=== PATIENT | male | born 1980 | race Hispanic/Latino ===

== ENCOUNTER 2016-10-22 09:48 | Emergency (ER) | payer MEDICARE ==
[2016-10-22] MEDS ORDERED: hyperRAB S/D IM ONE ×2 (10:00→15:00)
[2016-10-22] MEDS ORDERED: IMOVAX RABIES VACCINE IM ONE (10:00)
[2016-10-22] MEDS ORDERED: BOOSTRIX IM ONE (14:01)
[2016-10-22] MEDS ORDERED: PERCOCET 5/325 PO ONE (14:01)
[2016-10-22] MEDS ORDERED: RABAVERT RABIES VACCINE(PCEC) IM ONE (14:01)
[2016-10-22] MEDS ORDERED: NACL 0.9% IR ONE (14:04)
--- NOTE | 2016-10-22 14:24 | Emergency Department Report ---
ED Animal Bite HPI - General Chief Complaint: Animal Bite Stated Complaint: RT HAND LACERATION Time Seen by Provider: 10/22/16 13:24 Source: patient, family Mode of arrival: Ambulatory Limitations: No Limitations - Related Data Home Medications Medication Instructions Recorded Confirmed Last Taken Citalopram [celeXA] 50 mg PO QHS 11/03/13 03/28/16 04/13/15 QUEtiapine [Seroquel] 200 mg PO BID 11/03/13 03/28/16 04/13/15 traZODone [Desyrel] 100 mg PO QHS 11/03/13 03/28/16 04/13/15 LORazepam [Ativan] 0.5 mg PO BID 09/11/14 03/28/16 04/13/15 carBAMazepine [TEGretol] 200 mg PO Q12HR 03/26/16 03/28/16 Unknown Previous Rx's Medication Instructions Recorded Last Taken Type Diphenoxylate/Atropine [Lomotil] 1 tab PO QID PRN #20 tablet 03/26/16 1 Day Ago Rx Promethazine [Phenergan] 25 mg DC Q6HR PRN #10 supp.rect 03/26/16 1 Day Ago Rx traMADol [Ultram] 50 mg PO Q6HR PRN #14 tablet 03/26/16 Unknown Rx Famotidine [Pepcid] 20 mg PO BID #30 tablet 03/28/16 Unknown Rx Ondansetron [Zofran ODT TAB] 8 mg PO Q8HR #30 tab.rapdis 03/28/16 Unknown Rx metroNIDAZOLE [Flagyl] 500 mg PO Q12HR #20 tab 03/28/16 Unknown Rx ALBUTEROL Inhaler [ProAir HFA 2 puff IH QID PRN #1 inhalation 05/18/16 Unknown Rx Inhaler] Azithromycin [Zithromax Z-MELONY] 250 mg PO DAILY #6 tab 05/18/16 Unknown Rx Cephalexin [Keflex] 500 mg PO Q12HR #14 cap 05/26/16 Unknown Rx Ibuprofen [Motrin] 800 mg PO Q8HR PRN #20 tablet 05/26/16 Unknown Rx Mupirocin [Bactroban 2% OINT] 1 applic TP TID #1 tube 05/26/16 Unknown Rx Sulfamethoxazole/Trimethoprim 1 each PO BID #14 tablet 05/26/16 Unknown Rx [Bactrim DS TAB] Allergies Allergy/AdvReac Type Severity Reaction Status Date / Time tramadol Allergy Rash Verified 05/26/16 10:36 ED Review of Systems ROS: Stated complaint: RT HAND LACERATION Other details as noted in HPI ED Past Medical Hx - Past Medical History Previous Medical History?: Yes Hx Congestive Heart Failure: No Hx Diabetes: No Hx Kidney Stones: Yes Hx Psychiatric Treatment: Yes (paranoid schizo, bipolar, depression) Hx COPD: No Additional medical history: Kidney stones, urinary tract infection - Surgical History Past Surgical History?: Yes Hx Cholecystectomy: Yes Hx Appendectomy: Yes - Social History Smoking Status: Current Every Day Smoker Substance Use Type: Alcohol - Medications Home Medications: Home Medications Medication Instructions Recorded Confirmed Last Taken Type Citalopram [celeXA] 50 mg PO QHS 11/03/13 03/28/16 04/13/15 History QUEtiapine [Seroquel] 200 mg PO BID 11/03/13 03/28/16 04/13/15 History traZODone [Desyrel] 100 mg PO QHS 11/03/13 03/28/16 04/13/15 History LORazepam [Ativan] 0.5 mg PO BID 09/11/14 03/28/16 04/13/15 History Diphenoxylate/Atropine [Lomotil] 1 tab PO QID PRN #20 tablet 03/26/16 03/28/16 1 Day Ago Rx Promethazine [Phenergan] 25 mg DC Q6HR PRN #10 supp.rect 03/26/16 03/28/16 1 Day Ago Rx carBAMazepine [TEGretol] 200 mg PO Q12HR 03/26/16 03/28/16 Unknown History traMADol [Ultram] 50 mg PO Q6HR PRN #14 tablet 03/26/16 03/28/16 Unknown Rx Famotidine [Pepcid] 20 mg PO BID #30 tablet 03/28/16 Unknown Rx Ondansetron [Zofran ODT TAB] 8 mg PO Q8HR #30 tab.rapdis 03/28/16 Unknown Rx metroNIDAZOLE [Flagyl] 500 mg PO Q12HR #20 tab 03/28/16 Unknown Rx ALBUTEROL Inhaler [ProAir HFA 2 puff IH QID PRN #1 inhalation 05/18/16 Unknown Rx Inhaler] Azithromycin [Zithromax Z-MELONY] 250 mg PO DAILY #6 tab 05/18/16 Unknown Rx Cephalexin [Keflex] 500 mg PO Q12HR #14 cap 05/26/16 Unknown Rx Ibuprofen [Motrin] 800 mg PO Q8HR PRN #20 tablet 05/26/16 Unknown Rx Mupirocin [Bactroban 2% OINT] 1 applic TP TID #1 tube 05/26/16 Unknown Rx Sulfamethoxazole/Trimethoprim 1 each PO BID #14 tablet 05/26/16 Unknown Rx [Bactrim DS TAB] ED Physical Exam - General Limitations: No Limitations ED Course Vital Signs 10/22/16 10:00 Temperature 98.5 F Pulse Rate 97 H Respiratory 20 Rate Blood Pressure 137/106 O2 Sat by Pulse 98 Oximetry Critical care attestation.: If time is entered above; I have spent that time in minutes in the direct care of this critically ill patient, excluding procedure time. ED Disposition Condition: Stable Referrals: PRIMARY CARE, [Primary Care Provider] - 3-5 Days
--- NOTE | 2016-10-22 15:13 | XRay Report ---
FINAL REPORT EXAM: XR HAND 3 RT HISTORY: cat bite TECHNIQUE: AP, lateral, and oblique views of the right hand PRIORS: None. FINDINGS: There is no evidence for acute fracture or dislocation. There is subtle soft tissue swelling in the webbing between the 1st and 2nd metacarpals. There are also a few bubbles of air within this webbing. Bony mineralization is normal and joint spaces are maintained. IMPRESSION: No acute bony abnormality noted. Soft tissue swelling and a few bubbles of air noted in the soft tissues involving the webbing the for 2nd metacarpals.
[2016-10-22] MEDS ORDERED: ROCEPHIN IM STA (15:37)
[2016-10-22] MEDS ORDERED: XYLOCAINE 1% MPF 5 mL INFILTRATI ONE (15:37)
[2016-10-22] MEDS ORDERED: VALIUM IM ONE (16:03)
[2016-10-22 16:49] VITALS: BP 138/96
--- NOTE | 2016-10-22 19:43 | Emergency Department Report ---
Entered by ANA MCKINNEY, acting as scribe for ENEDINA MUSA PA. ED Animal Bite HPI - General Chief Complaint: Animal Bite Stated Complaint: RT HAND LACERATION Time Seen by Provider: 10/22/16 13:24 Source: patient, family Mode of arrival: Ambulatory Limitations: No Limitations - History of Present Illness Initial Comments: 36 year old male presents to the ED for evaluation of multiple bites, scratches , and abrasions to right hand, wrist, and forearm caused by his cat this morning at 09:00. Patient reports incident was unprovoked. He states his cat is an indoor/outdoor cat and is not up to date on immunizations. Patient's last tetanus immunization is unknown. He reports pain at site of bites and abrasions that he describes as constant, throbbing and rates his discomfort as a 7/10 in severity. Denies fever, chills. MD Complaint: animal bite -: This morning Time: 09:00 Right: Forearm (multiple abrasions), Hand (multiple abrasions, bite andrew with swelling and erythema to palmar and dorsal aspect of right hand) Animal: cat Description: household pet (that lives indoors and outdoors, immunizations are not current) Mechanism: bite (two bites to right hand), scratch (multiples scratches/ abrasions to right hand, wrist, and forearm) Pain Description: constant, other (throbbing) Severity scale (0 -10): 7 Context: unprovoked Associated Symptoms: erythema, bleeding. denies: discharge from wound, fever, chills, rash, cough, headache, shortness of breath Treatments Prior to Arrival: wound dressing(s) - Related Data Patient Tetanus UTD: No Home Medications Medication Instructions Recorded Confirmed Last Taken Citalopram [celeXA] 50 mg PO QHS 11/03/13 03/28/16 04/13/15 QUEtiapine [Seroquel] 200 mg PO BID 11/03/13 03/28/16 04/13/15 traZODone [Desyrel] 100 mg PO QHS 11/03/13 03/28/16 04/13/15 LORazepam [Ativan] 0.5 mg PO BID 09/11/14 03/28/16 04/13/15 carBAMazepine [TEGretol] 200 mg PO Q12HR 03/26/16 03/28/16 Unknown Previous Rx's Medication Instructions Recorded Last Taken Type Diphenoxylate/Atropine [Lomotil] 1 tab PO QID PRN #20 tablet 03/26/16 1 Day Ago Rx Promethazine [Phenergan] 25 mg NC Q6HR PRN #10 supp.rect 03/26/16 1 Day Ago Rx traMADol [Ultram] 50 mg PO Q6HR PRN #14 tablet 03/26/16 Unknown Rx Famotidine [Pepcid] 20 mg PO BID #30 tablet 03/28/16 Unknown Rx Ondansetron [Zofran ODT TAB] 8 mg PO Q8HR #30 tab.rapdis 03/28/16 Unknown Rx metroNIDAZOLE [Flagyl] 500 mg PO Q12HR #20 tab 03/28/16 Unknown Rx ALBUTEROL Inhaler [ProAir HFA 2 puff IH QID PRN #1 inhalation 05/18/16 Unknown Rx Inhaler] Azithromycin [Zithromax Z-MELONY] 250 mg PO DAILY #6 tab 05/18/16 Unknown Rx Cephalexin [Keflex] 500 mg PO Q12HR #14 cap 05/26/16 Unknown Rx Mupirocin [Bactroban 2% OINT] 1 applic TP TID #1 tube 05/26/16 Unknown Rx Sulfamethoxazole/Trimethoprim 1 each PO BID #14 tablet 05/26/16 Unknown Rx [Bactrim DS TAB] Clarithromycin [Biaxin] 500 mg PO BID #20 tab 10/22/16 Unknown Rx Ibuprofen [Motrin 800 MG tab] 800 mg PO Q8HR PRN #20 tablet 10/22/16 Unknown Rx Allergies Allergy/AdvReac Type Severity Reaction Status Date / Time tramadol Allergy Rash Verified 05/26/16 10:36 ED Review of Systems Comment: All other systems reviewed and negative Constitutional: denies: chills, fever Respiratory: denies: cough, shortness of breath Cardiovascular: denies: chest pain Gastrointestinal: denies: abdominal pain, nausea, vomiting Musculoskeletal: denies: back pain, arthralgia Skin: change in color (erythema to right hand at site of bite andrew), other ( mutiple scratch andrew/abrasions to right hand, wrist, and forearm. Bite andrew with swelling to palmar and dorsal aspect of right hand near right thumb). denies: rash Neurological: denies: headache, weakness, numbness, paresthesias, confusion, abnormal gait, vertigo ED Past Medical Hx - Past Medical History Previous Medical History?: Yes Hx Congestive Heart Failure: No Hx Diabetes: No Hx Kidney Stones: Yes Hx Psychiatric Treatment: Yes (paranoid schizo, bipolar, depression) Hx COPD: No Additional medical history: Kidney stones, urinary tract infection - Surgical History Past Surgical History?: Yes Hx Cholecystectomy: Yes Hx Appendectomy: Yes - Family History Family history: no significant - Social History Smoking Status: Current Every Day Smoker Substance Use Type: Alcohol - Medications Home Medications: Home Medications Medication Instructions Recorded Confirmed Last Taken Type Citalopram [celeXA] 50 mg PO QHS 11/03/13 03/28/16 04/13/15 History QUEtiapine [Seroquel] 200 mg PO BID 11/03/13 03/28/16 04/13/15 History traZODone [Desyrel] 100 mg PO QHS 11/03/13 03/28/16 04/13/15 History LORazepam [Ativan] 0.5 mg PO BID 09/11/14 03/28/16 04/13/15 History Diphenoxylate/Atropine [Lomotil] 1 tab PO QID PRN #20 tablet 03/26/16 03/28/16 1 Day Ago Rx Promethazine [Phenergan] 25 mg NC Q6HR PRN #10 supp.rect 03/26/16 03/28/16 1 Day Ago Rx carBAMazepine [TEGretol] 200 mg PO Q12HR 03/26/16 03/28/16 Unknown History traMADol [Ultram] 50 mg PO Q6HR PRN #14 tablet 03/26/16 03/28/16 Unknown Rx Famotidine [Pepcid] 20 mg PO BID #30 tablet 03/28/16 Unknown Rx Ondansetron [Zofran ODT TAB] 8 mg PO Q8HR #30 tab.rapdis 03/28/16 Unknown Rx metroNIDAZOLE [Flagyl] 500 mg PO Q12HR #20 tab 03/28/16 Unknown Rx ALBUTEROL Inhaler [ProAir HFA 2 puff IH QID PRN #1 inhalation 05/18/16 Unknown Rx Inhaler] Azithromycin [Zithromax Z-MELONY] 250 mg PO DAILY #6 tab 05/18/16 Unknown Rx Cephalexin [Keflex] 500 mg PO Q12HR #14 cap 05/26/16 Unknown Rx Mupirocin [Bactroban 2% OINT] 1 applic TP TID #1 tube 05/26/16 Unknown Rx Sulfamethoxazole/Trimethoprim 1 each PO BID #14 tablet 05/26/16 Unknown Rx [Bactrim DS TAB] Clarithromycin [Biaxin] 500 mg PO BID #20 tab 10/22/16 Unknown Rx Ibuprofen [Motrin 800 MG tab] 800 mg PO Q8HR PRN #20 tablet 10/22/16 Unknown Rx ED Physical Exam - General Limitations: No Limitations General appearance: alert, in no apparent distress - Head Head exam: Present: atraumatic, normocephalic - Eye Eye exam: Present: normal appearance, PERRL, EOMI Pupils: Present: normal accommodation - ENT ENT exam: Present: normal exam, mucous membranes moist - Neck Neck exam: Present: normal inspection, full ROM. Absent: tenderness, lymphadenopathy, thyromegaly - Respiratory Respiratory exam: Present: normal lung sounds bilaterally. Absent: respiratory distress, wheezes, rales, rhonchi - Cardiovascular Cardiovascular Exam: Present: regular rate, normal rhythm, normal heart sounds. Absent: systolic murmur, diastolic murmur, rubs, gallop - GI/Abdominal GI/Abdominal exam: Present: soft. Absent: distended, tenderness, guarding, rebound - Extremities Exam Extremities exam: Present: normal inspection, full ROM, normal capillary refill. Absent: tenderness, pedal edema, joint swelling, calf tenderness - Expanded Upper Extremity Exam Right Shoulder Exam: Present: normal inspection, full ROM. Absent: tenderness, swelling, abrasion, laceration, deformity Upper Arm exam: Present: normal inspection, full ROM. Absent: tenderness, swelling, abrasion, laceration Elbow exam: Present: normal inspection, full ROM. Absent: tenderness, swelling , abrasion, laceration Forearm Wrist exam: Present: full ROM, tenderness, abrasion (multiple abrasions to right hand, wrist and forearm). Absent: swelling, deformity Hand Wrist exam: Present: full ROM, tenderness, swelling (at site of bite andrew on palmar aspect below right thumb and dorsal aspect around first metacarpal), abrasion (mutiple abrasions to hand, wrist and forearm), erythema (at site of bite andrew), other (bite cheryl to palmar aspect of right hand below right thumb and dorsal apect of right hand around first metacarpal). Absent: laceration, ecchymosis, deformity, crepidus, dislocation, amputation, nail avulsion, subungual hematoma Neuro motor exam: Present: wrist extension intact, thumb opposition intact, thumb IP flexion intact, thumb adduction intact, fingers 2-5 abduction intact Neurosensory exam: Present: 2-point discrimination, radial nerve intact, ulnar nerve intact, median nerve intact Vascular: Present: normal capillary refill (less than 2 seconds), radial pulse ( 2+ right radial pulse), brachial pulse (2+ right brachial pulse), ulnar pulse (2 + right ulnar pulse). Absent: vascular compromise, pulse deficit radial art, pulse deficit ulnar art, pulse deficit brachial art - Neurological Exam Neurological exam: Present: alert, oriented X3, CN II-XII intact, other (audiology doctor strength 5/5 bilaterally). Absent: motor sensory deficit - Psychiatric Psychiatric exam: Present: anxious - Skin Skin exam: Present: warm, dry, erythema (to right hand at sites of bite cheryl. Dorsal aspect and palmar aspect of first metacarpal area), abrasion (multiple abrasions to right hand, wrist and forearm). Absent: rash, cyanosis, pallor ED Course Vital Signs 10/22/16 10/22/16 10/22/16 10:00 14:18 16:40 Temperature 98.5 F Pulse Rate 97 H 89 Respiratory 20 16 16 Rate Blood Pressure 137/106 Blood Pressure 138/96 [Right] O2 Sat by Pulse 98 98 Oximetry - Reevaluation(s) Reevaluation #1: 10/22/16 16:20 Patient given rabies immunoglobulin around scratch andrew and bite cheryl. He was given remainder of immunoglobulin intramuscularly. He was given RabAvert vaccine in his left upper deltoid muscle. Patient given Percocet 5/325 2 mg tablet in emergency room. After vaccination patient became more anxious and was given Valium 10 mg IM. He was also given Rocephin 1 g IM for cellulitis. ED Disposition Clinical Impression: Cat bite, Animal scratch, Cellulitis of left upper extremity Disposition: DISCHARGED TO HOME OR SELFCARE Is pt being admited?: No Does the pt Need Aspirin: No Condition: Stable Instructions: Animal Bite (ED), Cellulitis (ED), Cat Scratch Disease (ED) Additional Instructions: Please take antibiotic as prescribed He will need to come back to the hospital or your primary care physician office , whichever is more convenient for you to get series of rabies vaccine. Please return on October 25 for second rabies vaccine, October 29, third rabies vaccine, October 27 for 4th rabies vaccine and November 12, 2016 for fifth vaccination. Please take antibiotic as prescribed. Keep affected area clean and dry. if You noticed increased redness, swelling, radiating pain, fever, weakness nausea vomiting to right hand at Scratch side please return to the hospital ANT. Prescriptions: Clarithromycin [Biaxin] 500 mg PO BID #20 tab Ibuprofen [Motrin 800 MG tab] 800 mg PO Q8HR PRN #20 tablet PRN Reason: Pain Referrals: PRIMARY CARE, [Primary Care Provider] - 10/24/16 Forms: Accompanied Note, Work/School Release Form(ED) ED Medical Decision Making - Radiology Data Radiology results: report reviewed X-ray of the right hand revealed soft tissue swelling but no fracture or dislocation - Medical Decision Making ED Course: Patient with cat bite and cat scratch that happened today. Patient was treated with rabies immunoglobulin around scratch and bite site. He was also given additional dose of immunoglobulin injection IM to right deltoid and was given rabies vaccine which is RabAvert to his left deltoid. Patient anxious was given Valium 10 mg IM along with Rocephin 1 g ejection. Literature suggests that penicillin-based antibiotic is not effective against Bartonella henselae. This she suggests patient will be better covered with other antibiotics such as Biaxin. Patient has a primary care physician and he is able to afford Biaxin. Discharged home with prescription for Biaxin and Motrin and to follow-up with his primary care in 2 days. Patient also instructed to return to the emergency room on October 25, , and november 1212/2016 for series of rabies vaccination. He voiced understanding and reports that he may not be able to come back so I told him to call his primary care doctor and see if they have the vaccination or if they can get it and he can go to his primary care doctor vaccine. Patient is stable and discharged home with family member. This documentation as recorded by the HANK galarza REBEKAH,accurately reflects the service I personally performed and the decisions made by me,ENEDINA MUSA PA.
== END 2016-10-22 16:39 | disposition home or self-care (01) ==
LOC: ED 09:48
DX: S60.511A Abrasion of right hand, initial encounter (principal); S60.811A Abrasion of right wrist, initial encounter; S50.811A Abrasion of right forearm, initial encounter; L03.114 Cellulitis of left upper limb; F31.9 Bipolar disorder, unspecified; F20.0 Paranoid schizophrenia; F17.200 Nicotine dependence, unspecified, uncomplicated; Z90.49 Acquired absence of other specified parts of digestive tract; Z88.6 Allergy status to analgesic agent; W55.01XA Bitten by cat, initial encounter; Y93.89 Activity, other specified; Y99.8 Other external cause status; Y92.89 Other specified places as the place of occurrence of the external cause
CPT/HCPCS: 73130; 90375; 90471; 90675; 90715; 96372; 99283; J0696; J3360

== ENCOUNTER 2017-03-20 05:57 | Emergency (ER) | payer MEDICARE ==
[2017-03-20 06:23] VITALS: BP 141/93
[2017-03-20] MEDS ORDERED: MOTRIN PO ONE (08:53)
[2017-03-20] MEDS ORDERED: AUGMENTIN 875 MG PO ONE (08:53)
--- NOTE | 2017-03-20 09:02 | Emergency Department Report ---
ED Animal Bite HPI - General Chief Complaint: Animal Bite Stated Complaint: CAT BITE Time Seen by Provider: 03/20/17 08:22 Source: patient Mode of arrival: Ambulatory Limitations: No Limitations - History of Present Illness Initial Comments: Patient is a 36-year-old male presents to ED complaining of Bite to his right fifth digit 1 day. Patient states he was bitten by his father's cat pet yesterday afternoon. Patient states he woke up today and his finger was swollen and red and painful. Patient states he soaked his finger in peroxide mixed with water. Patient states his tetanus is up-to-date and is out of tetanus within the last 5 years. Patient also states that father is on the pad many years and he believes the cat is vaccinated. He denies fevers/chills/nausea/vomiting this abdominal pain chest chest pain or any other problems. - Related Data Home Medications Medication Instructions Recorded Confirmed Last Taken Citalopram [celeXA] 50 mg PO QHS 11/03/13 03/28/16 04/13/15 QUEtiapine [Seroquel] 200 mg PO BID 11/03/13 03/28/16 04/13/15 traZODone [Desyrel] 100 mg PO QHS 11/03/13 03/28/16 04/13/15 LORazepam [Ativan] 0.5 mg PO BID 09/11/14 03/28/16 04/13/15 carBAMazepine [TEGretol] 200 mg PO Q12HR 03/26/16 03/28/16 Unknown Previous Rx's Medication Instructions Recorded Last Taken Type Diphenoxylate/Atropine [Lomotil] 1 tab PO QID PRN #20 tablet 03/26/16 1 Day Ago Rx Promethazine [Phenergan] 25 mg ID Q6HR PRN #10 supp.rect 03/26/16 1 Day Ago Rx traMADol [Ultram] 50 mg PO Q6HR PRN #14 tablet 03/26/16 Unknown Rx Famotidine [Pepcid] 20 mg PO BID #30 tablet 03/28/16 Unknown Rx Ondansetron [Zofran ODT TAB] 8 mg PO Q8HR #30 tab.rapdis 03/28/16 Unknown Rx metroNIDAZOLE [Flagyl] 500 mg PO Q12HR #20 tab 03/28/16 Unknown Rx ALBUTEROL Inhaler [ProAir HFA 2 puff IH QID PRN #1 inhalation 05/18/16 Unknown Rx Inhaler] Azithromycin [Zithromax Z-MELONY] 250 mg PO DAILY #6 tab 05/18/16 Unknown Rx Cephalexin [Keflex] 500 mg PO Q12HR #14 cap 05/26/16 Unknown Rx Mupirocin [Bactroban 2% OINT] 1 applic TP TID #1 tube 05/26/16 Unknown Rx Sulfamethoxazole/Trimethoprim 1 each PO BID #14 tablet 05/26/16 Unknown Rx [Bactrim DS TAB] Clarithromycin [Biaxin] 500 mg PO BID #20 tab 10/22/16 Unknown Rx Ibuprofen [Motrin 800 MG tab] 800 mg PO Q8HR PRN #20 tablet 10/22/16 Unknown Rx Amoxicillin/K Clav Tab [Augmentin 1 each PO BID #20 tablet 03/20/17 Unknown Rx 875MG TAB] Ibuprofen [Motrin 800 MG tab] 800 mg PO Q8H #30 tablet 03/20/17 Unknown Rx Allergies Allergy/AdvReac Type Severity Reaction Status Date / Time tramadol Allergy Rash Verified 05/26/16 10:36 ED Review of Systems ROS: Stated complaint: CAT BITE Other details as noted in HPI Constitutional: denies: chills, fever Eyes: denies: eye pain, eye discharge, vision change ENT: denies: ear pain, throat pain Respiratory: denies: cough, shortness of breath, wheezing Cardiovascular: denies: chest pain, palpitations Endocrine: no symptoms reported Gastrointestinal: denies: abdominal pain, nausea, diarrhea Genitourinary: denies: urgency, dysuria Musculoskeletal: denies: back pain, joint swelling, arthralgia Skin: denies: rash, lesions Neurological: denies: headache, weakness, paresthesias Psychiatric: denies: anxiety, depression Hematological/Lymphatic: denies: easy bleeding, easy bruising ED Past Medical Hx - Past Medical History Previous Medical History?: Yes Hx Congestive Heart Failure: No Hx Diabetes: No Hx Kidney Stones: Yes Hx Psychiatric Treatment: Yes (paranoid schizo, bipolar, depression) Hx COPD: No Additional medical history: Kidney stones, urinary tract infection - Surgical History Past Surgical History?: Yes Hx Cholecystectomy: Yes Hx Appendectomy: Yes - Social History Smoking Status: Current Every Day Smoker Substance Use Type: None - Medications Home Medications: Home Medications Medication Instructions Recorded Confirmed Last Taken Type Citalopram [celeXA] 50 mg PO QHS 11/03/13 03/28/16 04/13/15 History QUEtiapine [Seroquel] 200 mg PO BID 11/03/13 03/28/16 04/13/15 History traZODone [Desyrel] 100 mg PO QHS 11/03/13 03/28/16 04/13/15 History LORazepam [Ativan] 0.5 mg PO BID 09/11/14 03/28/16 04/13/15 History Diphenoxylate/Atropine [Lomotil] 1 tab PO QID PRN #20 tablet 03/26/16 03/28/16 1 Day Ago Rx Promethazine [Phenergan] 25 mg ID Q6HR PRN #10 supp.rect 03/26/16 03/28/16 1 Day Ago Rx carBAMazepine [TEGretol] 200 mg PO Q12HR 03/26/16 03/28/16 Unknown History traMADol [Ultram] 50 mg PO Q6HR PRN #14 tablet 03/26/16 03/28/16 Unknown Rx Famotidine [Pepcid] 20 mg PO BID #30 tablet 03/28/16 Unknown Rx Ondansetron [Zofran ODT TAB] 8 mg PO Q8HR #30 tab.rapdis 03/28/16 Unknown Rx metroNIDAZOLE [Flagyl] 500 mg PO Q12HR #20 tab 03/28/16 Unknown Rx ALBUTEROL Inhaler [ProAir HFA 2 puff IH QID PRN #1 inhalation 05/18/16 Unknown Rx Inhaler] Azithromycin [Zithromax Z-MELONY] 250 mg PO DAILY #6 tab 05/18/16 Unknown Rx Cephalexin [Keflex] 500 mg PO Q12HR #14 cap 05/26/16 Unknown Rx Mupirocin [Bactroban 2% OINT] 1 applic TP TID #1 tube 05/26/16 Unknown Rx Sulfamethoxazole/Trimethoprim 1 each PO BID #14 tablet 05/26/16 Unknown Rx [Bactrim DS TAB] Clarithromycin [Biaxin] 500 mg PO BID #20 tab 10/22/16 Unknown Rx Ibuprofen [Motrin 800 MG tab] 800 mg PO Q8HR PRN #20 tablet 10/22/16 Unknown Rx Amoxicillin/K Clav Tab [Augmentin 1 each PO BID #20 tablet 03/20/17 Unknown Rx 875MG TAB] Ibuprofen [Motrin 800 MG tab] 800 mg PO Q8H #30 tablet 03/20/17 Unknown Rx ED Physical Exam - General Limitations: No Limitations General appearance: alert, in no apparent distress - Head Head exam: Present: atraumatic, normocephalic - Eye Eye exam: Present: normal appearance - ENT ENT exam: Present: mucous membranes moist - Neck Neck exam: Present: normal inspection - Respiratory Respiratory exam: Present: normal lung sounds bilaterally. Absent: respiratory distress - Cardiovascular Cardiovascular Exam: Present: regular rate, normal rhythm. Absent: systolic murmur, diastolic murmur, rubs, gallop - GI/Abdominal GI/Abdominal exam: Present: soft, normal bowel sounds - Rectal Rectal exam: Present: deferred - Extremities Exam Extremities exam: Present: normal inspection - Back Exam Back exam: Present: normal inspection - Neurological Exam Neurological exam: Present: alert, oriented X3 - Psychiatric Psychiatric exam: Present: normal affect, normal mood - Skin Skin exam: Present: warm, dry, intact, normal color. Absent: rash - Other Other exam information: EXTREMITIES/MUSCULOSKELETAL: No cyanosis, clubbing, rash, lesions or edema. Full ROM bilaterally. UE Pulses 2+ bilaterally. Rashes did J mildly erythematous and swollen, 3 puncture by months visualized, scabbed over. Tender to palpation of the little finger . ED Course Vital Signs 03/20/17 06:19 Temperature 97.5 F L Pulse Rate 86 Respiratory 17 Rate Blood Pressure 141/93 O2 Sat by Pulse 98 Oximetry Critical care attestation.: If time is entered above; I have spent that time in minutes in the direct care of this critically ill patient, excluding procedure time. ED Disposition Clinical Impression: Cat bite of finger Qualifiers: Encounter type: initial encounter Qualified Code(s): S61.259A - Open bite of unspecified finger without damage to nail, initial encounter Disposition: DC-01 TO HOME OR SELFCARE Is pt being admited?: No Does the pt Need Aspirin: No Condition: Stable Instructions: Animal Bite (ED) Prescriptions: Amoxicillin/K Clav Tab [Augmentin 875MG TAB] 1 each PO BID #20 tablet Ibuprofen [Motrin 800 MG tab] 800 mg PO Q8H #30 tablet Referrals: PRIMARY CARE, [Primary Care Provider] - 3-5 Days [facility] [Outside] - [facility] - [facility]5 Days [facility] [Outside] - 3-5 Days Forms: Work/School Release Form(ED) Time of Disposition: 09:05 Medical Decision Making - MDM 36-year-old male presents with a cat bite to the finger. ED course: Patient received pain medication and Augmentin in the ED Discussed patient to continue Augmentin. Medication at home Tetanus booster was up-to-date so no need for vaccination. Discussed clean wound daily and keep from getting infected. Discussed to follow up with primary care physician as referred. Vital signs are normal patient is in no acute distress Patient understands instructions given Discussed the patient have worsening symptoms to return to ED otherwise follow up with a primary care
== END 2017-03-20 09:12 | disposition home or self-care (01) ==
LOC: ED 05:57
DX: S61.257A Open bite of left little finger without damage to nail, initial encounter (principal); F32.9 Major depressive disorder, single episode, unspecified; F20.9 Schizophrenia, unspecified; F17.200 Nicotine dependence, unspecified, uncomplicated; Z88.8 Allergy status to other drugs, medicaments and biological substances; W55.01XA Bitten by cat, initial encounter; Y93.89 Activity, other specified; Y92.89 Other specified places as the place of occurrence of the external cause; Y99.8 Other external cause status
CPT/HCPCS: 99283